=== PATIENT | female | born 1970 | race Caucasian/White ===

== ENCOUNTER → 2018-05-21 | Emergency (ER) | payer OTHER ==
[~2018-05-21] VITALS: Ht 162.6 cm; Wt 70.3 kg
[~2018-05-21] MED LIST: KEFLEX250 MG; MECLIZINE HCL25 MG PO; METOCLOPRAMIDE10 MG PO
== END | disposition home or self-care (01) ==
LOC: ER 21:52
DX: R42 Dizziness and giddiness (principal); H73.892 Other specified disorders of tympanic membrane, left ear